=== PATIENT | female | born 1970 | race Two or more races ===

== ENCOUNTER 2017-02-09 15:21 | Emergency (ER) | payer BC ==
[2017-02-09 15:29] VITALS: BP 121/70; PULSE 79; TEMP 99.3; BMI 26.6
--- NOTE | 2017-02-09 16:59 | PDOC ---
History of Present Illness - General Chief Complaint: Respiratory Stated Complaint: COUGH,FEVER, SORE THROAT Time Seen by Provider: 02/09/17 16:45 History Source: Patient Exam Limitations: No Limitations - History of Present Illness Initial Comments: 02/09/17 16:59 CHIEF COMPLAINT: Cough HISTORY OF PRESENT ILLNESS: This is an otherwise healthy 46 year old female who presents complaining of two days of fevers/chills, cough productive of white sputum, and bodyaches. She was started on azithromycin by her PCP for bronchitis , but feels no better. She denies shortness of breath, chest pain, or any other symptoms. Vital signs on arrival are notable for low-grade temp of 99.[address] Saeed. REVIEW OF SYSTEMS: GENERAL/CONSTITUTIONAL: Fevers/chills, bodyaches, weakness. No weight change. HEAD, EYES, EARS, NOSE AND THROAT: Throat pain/painful swallowing. CARDIOVASCULAR: No chest pain or palpitations. RESPIRATORY: Cough productive of white sputum. No wheezing or shortness of breath. GASTROINTESTINAL: No nausea, vomiting, diarrhea or constipation. GENITOURINARY: No dysuria, frequency, or change in urination. MUSCULOSKELETAL: No joint or muscle swelling or pain. No neck or back pain. SKIN: No rash or easy bruising. NEUROLOGIC: No headache, vertigo, loss of consciousness, or loss of sensation. ALLERGIC/IMMUNOLOGIC: No hives or skin allergy. No latex allergy. PHYSICAL EXAM: GENERAL: The patient is awake, alert, and fully oriented, in no acute distress. ENT: Pupils equal, round and reactive to light, extraocular movements intact, sclera anicteric, conjunctiva clear. Neck supple. LUNGS: Clear to auscultation bilaterally. Normal excursion. No respiratory distress or use of accessory muscles. CV: RRR, S1/S2, no MRG. Cap refill < 2 sec. ABDOMEN: Soft, non-distended, non-tender. EXTREMITIES: Normal range of motion, no edema. NEUROLOGICAL: Normal speech, normal gait. CN II-XII grossly intact. PSYCH: Normal mood, normal affect. SKIN: Warm, dry, normal turgor, no rashes or lesions noted. Past History - Past Medical History Allergies/Adverse Reactions: Allergies Allergy/AdvReac Type Severity Reaction Status Date / Time No Known Allergies Allergy Verified 02/09/17 15:24 Home Medications: Ambulatory Orders Albuterol Sulfate Inhaler - [Ventolin HFA Inhaler -] 1 - 2 inh PO QID PRN #1 inhaler 02/09/17 Ibuprofen 600 mg PO QID PRN #30 tablet 02/09/17 Promethazine/Phenyleph/Codeine [Phenergan VC+Codeine Syrup] 5 ml PO QID PRN # 120 ml MDD 20 mls 02/09/17 Other medical history: DENIES. - Psycho/Social/Smoking Cessation Hx Suicidal Ideation: No Smoking History: Never smoked Hx Alcohol Use: No Drug/Substance Use Hx: No *Physical Exam - Vital Signs Last Vital Signs Temp Pulse Resp BP Pulse Ox 99.3 F 79 20 121/70 99 02/09/17 15:24 02/09/17 15:24 02/09/17 15:24 02/09/17 15:24 02/09/17 15:24 Medical Decision Making - Medical Decision Making 02/09/17 18:24 A/P: 46 year old female with chills and URI symptoms. Being treated for bronchitis with azithromycin. 1. Influenza swab 2. CXR to r/o infiltrate 3. DuoNeb for persistent cough 4. Ibuprofen for bodyaches 5. Re-evaluate 02/09/17 18:35 Flu swab: negative CXR wet read: no infiltrate *DC/Admit/Observation/Transfer Diagnosis at time of Disposition: Bronchitis - Discharge Dispostion Disposition: HOME Condition at time of disposition: Stable Admit: No - Referrals Referrals: Turner Saeed MD [Primary Care Provider] - 3 days - Patient Instructions Printed Discharge Instructions: DI for Acute Bronchitis Additional Instructions: -Continue azithromycin as prescribed by your primary care doctor -Add albuterol inhaler and cough syrup as prescribed -Take ibuprofen as prescribed for pain, fever, and bodyaches -Return here for difficulty breathing or any other concerning symptoms
[2017-02-09] MEDS ORDERED: IBUPROFEN 600 MG TABLET (FP) PO ONE (17:06)
[2017-02-09] MEDS ORDERED: IBUPROFEN 400 MG TABLET (FP) PO ONE ×2 (17:15→17:21)
== END 2017-02-09 18:52 | disposition home or self-care (01) ==
LOC: JERFT 15:21
DX: J20.9 Acute bronchitis, unspecified (principal)
CPT/HCPCS: 71020-TC; 84703; 87804; 99281-25

== ENCOUNTER 2021-09-25 19:03 | Emergency (ER) | payer BC ==
[2021-09-25 19:22] VITALS: BMI 29.1
[2021-09-25 21:35] LABS: BASO % 0.8 % (0-2.0); EOS % 1.4 % (0-4.5); HEMATOCRIT 39.6 % (32.4-45.2); HEMOGLOBIN 13.5 GM/dL (10.7-15.3); LYMPH % 46.6 % (8-40); MCH 30.5 pg (25.7-33.7); MEAN CELL VOLUME 89.6 fl (80-96); MEAN PLT VOLUME 9.9 fl (7.5-11.1); MONO % 6.1 % (3.8-10.2); NEUT % 45.1 % (42.8-82.8); PLATELET COUNT 241 10^3/uL (134-434); RBC 4.42 M/mm3 (3.60-5.2); RDW 12.7 % (11.6-15.6); URINE APPEARANCE CLEAR; URINE BILIRUBIN NEGATIVE (NEGATIVE); URINE COLOR YELLOW; URINE GLUCOSE (UA) NEGATIVE (NEGATIVE); URINE KETONE NEGATIVE (NEGATIVE); URINE LEUK ESTERASE NEGATIVE (NEGATIVE); URINE NITRITE NEGATIVE (NEGATIVE); URINE PROTEIN NEGATIVE (NEGATIVE); URINE UROBILINOGEN 0.2 mg/dL (0.2-1.0); WHITE BLOOD COUNT 5.9 K/mm3 (4.0-10.0)
[2021-09-25 21:49] LABS: CHLORIDE 105 mmol/L (98-107); SODIUM 142 mmol/L (136-145)
[2021-09-25 21:50] LABS: CALCIUM 9.8 mg/dL (8.5-10.1)
[2021-09-25 21:51] LABS: ALBUMIN 4.4 g/dl (3.4-5.0); ANION GAP 7 MMOL/L (8-16); BLOOD UREA NITROGEN 11.7 mg/dL (7-18); CO2 31 mmol/L (21-32); GLUCOSE,RANDOM 127 mg/dL (74-106)
[2021-09-25 21:54] LABS: CREATININE 0.8 mg/dL (0.55-1.3); SGOT/AST 35 U/L (15-37); SGPT/ALT 37 U/L (13-61)
[2021-09-25 21:55] LABS: BILIRUBIN,TOTAL 0.4 mg/dL (0.2-1)
[2021-09-25 21:56] LABS: TOT PROT 8.2 g/dl (6.4-8.2)
[2021-09-25 21:57] LABS: ALK PHOS 82 U/L (45-117)
[2021-09-25] MEDS ORDERED: METOCLOPRAMIDE HCL INJECTION 10 MG/2 ML VIAL IVPUSH ONE (22:34)
[2021-09-25] MEDS ORDERED: METOCLOPRAMIDE HCL INJECTION 10 MG/2 ML VIAL ONE (22:40)
[2021-09-25 23:29] VITALS: TEMP 98.1
[2021-09-25 23:48] VITALS: BP 139/79; PULSE 63
== END 2021-09-25 23:51 | disposition home or self-care (01) ==
LOC: JER 19:03
PROC: 3E033GC Introduction of Other Therapeutic Substance into Peripheral Vein, Percutaneous Approach (ICD-10-PCS; principal; 2021-09-25)
DX: R03.0 Elevated blood-pressure reading, without diagnosis of hypertension (principal)
CPT/HCPCS: 36415; 70450-TC; 80053; 81003; 84484; 84703; 85025; 87086; 93005; 93010; 99285-25